=== PATIENT | female | born 1975 | race Caucasian/White ===

== ENCOUNTER 2021-06-04 14:16 | Emergency (ER) | payer OTHER | END 2021-06-04 17:00 | disposition home or self-care (01) | LOC: ER1 14:16 | DX: S61.211A Laceration without foreign body of left index finger without damage to nail, initial encounter (principal); Z90.49 Acquired absence of other specified parts of digestive tract; Z88.0 Allergy status to penicillin; W26.0XXA Contact with knife, initial encounter | CPT/HCPCS: 90715; 99283 ==